=== PATIENT | female | born 1950 | race Hispanic/Latino ===

== ENCOUNTER 2016-12-19 22:43 | Emergency (ER) | payer SELFPAY ==
[2016-12-19 22:43] VITALS: BMI 27.4
--- NOTE | 2016-12-19 22:59 | ED PDOC ---
HPI: General Adult Time Seen by Provider: 12/19/16 22:52 Chief Complaint (Nursing): Psychiatric Evaluation Chief Complaint (Provider): Aggressive behavior History Per: Patient History/Exam Limitations: no limitations Onset/Duration Of Symptoms: Days (Today) Additional Complaint(s): Pt. told police she had bad food. She called 911 and told them. She refused an ambulance, but just wanted to report it. Denies any chest pain, dyspnea, abd pain, weakness, dizziness currently. Not suicidal or homicidal. No drugs or etoh. Past Medical History Reviewed: Nursing Documentation, Vital Signs Vital Signs: Last Vital Signs Temp 98.5 F 12/19/16 22:50 Pulse 85 12/19/16 22:50 Resp 17 12/19/16 22:50 BP 150/99 H 12/19/16 22:50 Pulse Ox 99 12/19/16 23:04 - Medical History PMH: No Chronic Diseases Denies: Diabetes, Hepatitis, HIV, HTN, Seizures, Sexually Transmitted Disease - Surgical History Surgical History: No Surg Hx - Family History Family History: States: Unknown Family Hx - Living Arrangements Living Arrangements: With Family - Social History Current smoker - smoking cessation education provided: No Alcohol: None Drugs: Denies - Immunization History Hx Tetanus Toxoid Vaccination: No Hx Influenza Vaccination: No Hx Pneumococcal Vaccination: No - Allergies Allergies/Adverse Reactions: Allergies Allergy/AdvReac Type Severity Reaction Status Date / Time Penicillins Allergy RASH Verified 04/09/16 17:52 Review of Systems ROS Statement: Except As Marked, All Systems Reviewed And Found Negative Physical Exam - Reviewed Nursing Documentation Reviewed: Yes Vital Signs Reviewed: Yes - Physical Exam Appears: Positive for: Well, Non-toxic, No Acute Distress Head Exam: Positive for: ATRAUMATIC, NORMAL INSPECTION, NORMOCEPHALIC Skin: Positive for: Normal Color, Warm, DRY Eye Exam: Positive for: EOMI, Normal appearance, PERRL ENT: Positive for: Normal ENT Inspection Neck: Positive for: Normal, Painless ROM Cardiovascular/Chest: Positive for: Regular Rate, Rhythm Respiratory: Positive for: CNT, Normal Breath Sounds Gastrointestinal/Abdominal: Positive for: Normal Exam, Bowel Sounds, Soft. Negative for: Tenderness Back: Positive for: Normal Inspection. Negative for: L CVA Tenderness, R CVA Tenderness Extremity: Positive for: Normal ROM. Negative for: Tenderness, Pedal Edema Neurologic/Psych: Positive for: Alert, Oriented - ECG O2 Sat by Pulse Oximetry: 99 Pulse Ox Interpretation: Normal - Progress ED Course And Treament: 1154pm: Dr. Hennessy to take over care. FU on crisis. Disposition - Clinical Impression Clinical Impression: Homeless - Patient ED Disposition Is Patient to be Admitted: Transfer of Care - Disposition Disposition: Transfer of Care Disposition Time: 23:58 Condition: STABLE Patient Signed Over To: Puneet Hennessy
--- NOTE | 2016-12-20 00:39 | ED PDOC ---
- ECG O2 Sat by Pulse Oximetry: 99 Medical Decision Making Medical Decision Makin: Patient signed out to provider from Dr. Otero pending crisis evaluation. Evaluated by crisis and stable for discharge home. Diagnosis: anxiety Condition is stable Scribe Attestation: Documented by Mark Verdin acting as a scribe for Puneet Hennessy MD. Provider Scribe Attestation: All medical record entries made by the Scribe were at my direction and personally dictated by me. I have reviewed the chart and agree that the record accurately reflects my personal performance of the history, physical exam, medical decision making, and the department course for this patient. I have also personally directed, reviewed, and agree with the discharge instructions and disposition. Disposition - Clinical Impression Clinical Impression: Anxiety - POA Present On Arrival: None - Disposition Disposition: Routine/Home Disposition Time: 00:30 Condition: STABLE Instructions: Anxiety (ED)
[2016-12-20 12:16] VITALS: BP 138/75; PULSE 82; RESP 20; TEMP 98.5; O2SAT 99
== END 2016-12-20 00:56 | disposition home or self-care (01) ==
LOC: H.ER 22:43
DX: F41.9 Anxiety disorder, unspecified (principal); Z88.0 Allergy status to penicillin